=== PATIENT | male | born 1970 | race African-American/Black ===

== ENCOUNTER 2018-03-25 15:35 | Inpatient (IN) | payer OTHER ==
[2018-03-25 16:41] VITALS: BMI 30.7
--- NOTE | 2018-03-25 21:42 | HP ---
CIWA Score - CIWA Score Nausea/Vomitin Muscle Tremors: 4-Moderate,w/Arms Extend Anxiety: 3 Agitation: 4-Moderately Restless Paroxysmal Sweats: No Perspiration Orientation: 1-Uncertain about Date Tacttile Disturbances: 0-None Auditory Disturbances: 0-None Visual Disturbances: 0-None Headache: 3-Moderate CIWA-Ar Total Score: 18 Admission ROS BHS - HPI Chief Complaint: Alcohol withdrawal symptoms Allergies/Adverse Reactions: Allergies Allergy/AdvReac Type Severity Reaction Status Date / Time No Known Allergies Allergy Verified 03/25/18 21:12 History of Present Illness: 47 years old male with a long history of alcohol dependence is seeking admission to detox. patient has been in previous detox at [facility] and report insignificant period of sobriety. He has medical history of HTN, DM Type 2, Depression, anxiety and STD. He reports suicide attempt last month and denies suicidal ideation at this time. Exam Limitations: No Limitations - Ebola screening Have you traveled outside of the country in the last 21 days: No Have you had contact with anyone from an Ebola affected area: No Have you been sick,other than usual withdrawal symptoms: No Do you have a fever: No - Review of Systems Constitutional: Chills, Loss of Appetite, Malaise, Night Sweats, Changes in sleep, Unexplained wgt Loss EENT: reports: No Symptoms Reported Respiratory: reports: No Symptoms reported Cardiac: reports: No Symptoms Reported GI: reports: Difficulty Swallowing, Nausea, Poor Appetite, Poor Fluid Intake, Abdominal cramping : reports: No Symptoms Reported Neuro: reports: Headache, Tingling, Tremors Endocrine: reports: No Symptoms Reported Hematology: reports: No Symptoms Reported Psychiatric: reports: Orientated x3, Agitated, Anxious Other Systems: Reviewed and Negative Patient History - Patient Medical History Hx Anemia: No Hx Asthma: No Hx Chronic Obstructive Pulmonary Disease (COPD): No Hx Cancer: No Hx Cardiac Disorders: No Hx Hypertension: Yes (Not on medication) Hx Hypercholesterolemia: No Hx Pacemaker: No HX Cerebrovascular Accident: No Hx Seizures: No Hx Diabetes: Yes (Not on medication) Hx Gastrointestinal Disorders: No Hx Liver Disease: No Hx Genitourinary Disorders: No Hx Sexually Transmitted Disorders: Yes (STD (type unknown)) Hx Renal Disease (ESRD): No Hx Thyroid Disease: No Hx Human Immunodeficiency Virus (HIV): No (Negative 2017) Hx Hepatitis C: No Hx Depression: Yes (Not on medication) Hx Suicide Attempt: Yes (Suicide attempt January 2018. Denies suicidal ideation at this time) Hx Bipolar Disorder: No Hx Schizophrenia: Yes (Celexa, Depakote) - Patient Surgical History Past Surgical History: No - PPD History Previous Implant?: No Documented Results: Negative w/o proof Implanted On Prior [facility] Admission?: Yes PPD to be Administered?: Yes - Reproductive History Patient is a Female of Child Bearing Age (11 -55 yrs old): No (Male) - Smoking Cessation Smoking history: Never smoked Initiated information on smoking cessation: No - Substance & Tx. History Hx Alcohol Use: Yes Hx Substance Use: Yes Substance Use Type: Alcohol, Cocaine, Marijuana Hx Substance Use Treatment: No - Substances Abused Alcohol Route: Oral Frequency: Daily Amount used: 2 PINTS Age of first use: 12 Date of Last Use: 03/25/18 Marijuana/Hashish Route: Smoking Frequency: Daily Amount used: 4 BAGS Age of first use: 11 Date of Last Use: 03/25/18 Cocaine Route: SNIFF Frequency: Daily Amount used: 1 GRAM Age of first use: 13 Date of Last Use: 03/24/18 Family Disease History - Family Disease History Family History: Denies Admission Physical Exam S - Vital Signs Vital Signs: Vital Signs - 24 hr 03/25/18 16:38 Temperature 97.2 F L Pulse Rate 91 H Respiratory 20 Rate Blood Pressure 164/93 - Physical General Appearance: Yes: Moderate Distress, Tremorous, Irritable, Sweating, Anxious HEENTM: Yes: Normal ENT Inspection, Normocephalic, Normal Voice, RAMIRO Respiratory: Yes: Lungs Clear, Normal Breath Sounds, No Respiratory Distress Neck: Yes: Supple Breast: Yes: Breast Exam Deferred Cardiology: Yes: Tachycardia Abdominal: Yes: Normal Bowel Sounds Genitourinary: Yes: Within Normal Limits Back: Yes: Normal Inspection Musculoskeletal: Yes: Within Normal Limits Extremities: Yes: Tremors Neurological: Yes: Alert, Normal Mood/Affect Integumentary: Yes: Dry Lymphatic: Yes: Within Normal Limits - Diagnostic (1) Alcohol dependence with uncomplicated withdrawal Current Visit: Yes Status: Chronic (2) HTN (hypertension) Current Visit: Yes Status: Chronic (3) Anxiety Current Visit: Yes Status: Acute (4) Depression Current Visit: Yes Status: Chronic Qualifiers: Depression Type: unspecified Qualified Code(s): F32.9 - Major depressive disorder, single episode, unspecified (5) Diabetes type 2, no ocular involvement Current Visit: Yes Status: Chronic Cleared for Admission [facility] - Detox or Rehab [facility] Level of Care: Medically Managed Detox Regimen/Protocol: Librium [facility] Breath Alcohol Content Breath Alcohol Content: 0.059 Urine Drug Screen - Results Drug Screen Negative: No Urine Drug Screen Results: THC-Marijuana, BZO-Benzodiazepines
[2018-03-25] MEDS ORDERED: ACETAMINOPHEN 325 MG TABLET (FP) PO PRN (21:53)
[2018-03-25] MEDS ORDERED: MAGNESIUM HYDROX 2400MG/30ML ORAL SUSPENSION 30 ML CUP PO PRN (21:53)
[2018-03-25] MEDS ORDERED: MAGNESIUM CITRATE 300 ML BOTTLE PO PRN (21:53)
[2018-03-25] MEDS ORDERED: MAG HYDROX/AL HYDROX/SIMETH 30 ML UNIT-DOSE CUP PO PRN (21:53)
[2018-03-25] MEDS ORDERED: chlordiazePOXIDE HCL 25 MG CAPSULE PO PRN (21:53)
[2018-03-25] MEDS ORDERED: guaiFENesin/D-METHORPHAN HB 10 ML UNIT-DOSE CUPS PO PRN (21:53)
[2018-03-25] MEDS ORDERED: IBUPROFEN 400 MG TABLET (FP) PO PRN (21:53)
[2018-03-25] MEDS ORDERED: LOPERAMIDE HCL 2 MG CAPSULE PO PRN (21:53)
[2018-03-25] MEDS ORDERED: MENTHOL/PHENOL 1 EACH UD MM PRN (21:53)
[2018-03-25] MEDS ORDERED: P-EPHED 60MG/TRIPROLIDI 2.5MG TABLET PO PRN (21:53)
[2018-03-25] MEDS ORDERED: MELATONIN 5 MG TABLETS PO PRN (22:00)
[2018-03-25] MEDS: chlordiazePOXIDE HCL 25 MG CAPSULE PO SCH (23:14)
[2018-03-25] MEDS: THIAMINE HCL 100 MG TABLET (FP) PO SCH (23:14)
[2018-03-25] MEDS ORDERED: cloNIDine HCL 0.1 MG TABLET PO ONE (23:27)
[2018-03-26 01:11] LABS: URINE APPEARANCE CLEAR; URINE BILIRUBIN NEGATIVE (<2.0 mg/dL); URINE BLOOD NEGATIVE (NEGATIVE); URINE COLOR LTYELLOW; URINE GLUCOSE (UA) NEGATIVE (NEGATIVE); URINE KETONE NEGATIVE (NEGATIVE); URINE LEUK ESTERASE NEGATIVE (NEGATIVE); URINE NITRITE NEGATIVE (NEGATIVE); URINE UROBILINOGEN NEGATIVE mg/dL (0.2-1.0)
[2018-03-26 01:25] LABS: URINE PROTEIN 2+ (NEGATIVE)
[2018-03-26 01:36] LABS: URINE MUCUS RARE
[2018-03-26] MEDS: chlordiazePOXIDE HCL 25 MG CAPSULE PO SCH ×4 (05:58→22:26)
[2018-03-26 10:09] LABS: HEMATOCRIT 42.1 % (35.4-49); MCH 30.8 pg (25.7-33.7); MCHC 33.3 g/dl (32.0-35.9); MEAN CELL VOLUME 92.5 fl (80-96); PLATELET COUNT 139 K/MM3 (134-434); RBC 4.55 M/mm3 (4.00-5.60); RDW 13.5 % (11.9-15.9); WHITE BLOOD COUNT 3.5 K/mm3 (4.0-10.0)
[2018-03-26 10:23] LABS: BLOOD UREA NITROGEN 14 mg/dL (7-18)
[2018-03-26] MEDS: PRENATAL VITAMINS W/ FOLIC ACID TABLET (FP) PO SCH (10:53)
[2018-03-26 11:24] LABS: ALBUMIN 3.6 g/dl (3.4-5.0); ALK PHOS 99 U/L (45-117); ANION GAP 5 (8-16); BILIRUBIN,TOTAL 1.1 mg/dL (0.2-1.0); CALCIUM 8.6 mg/dL (8.5-10.1); CHLORIDE 104 mmol/L (98-107); CO2 31 mmol/L (21-32); CREATININE 1.4 mg/dL (0.7-1.3); GLUCOSE,RANDOM 109 mg/dL (74-106); SGOT/AST 39 U/L (15-37); SGPT/ALT 48 U/L (12-78); SODIUM 140 mmol/L (136-145); TOT PROT 7.3 g/dl (6.4-8.2)
--- NOTE | 2018-03-26 12:50 | CONSULT ---
[facility] Psychiatric Consult - Data Date of interview: 03/26/18 Admission source: [facility] Identifying data: Patient is a 47 year old male, father of one, unemployed, and currently lives with . This is patient's first admission to detox. Pt. admitted to for alcohol and cocaine dependence. Substance Abuse History: Smoking Cessation. Smoking history: Never smoked. Initiated information on smoking cessation: No. - Substance & Tx. History. Hx Alcohol Use: Yes. Hx Substance Use: Yes. Substance Use Type: Alcohol, Cocaine , Marijuana. Hx Substance Use Treatment: No. - Substances Abused. Alcohol. Route: Oral. Frequency: Daily. Amount used: 2 PINTS. Age of first use: 12. Date of Last Use: 03/25/18. Marijuana/Hashish. Route: Smoking. Frequency: Daily. Amount used: 4 BAGS. Age of first use: 11. Date of Last Use : 03/25/18. Cocaine. Route: SNIFF. Frequency: Daily. Amount used: 1 GRAM. Age of first use: 13. Date of Last Use: 03/24/18 Medical History: hypertension, diabetes, STD (unknown) Psychiatric History: Patient reports multiple psychiatric hospitalizations, most recently at [facility] in November of 2017 for suicidal ideation. Pt. is also known to [facility] in the [place]. OPD is provided at [facility]. Patient is prescribed Depakote 1500mg ER + Celexa 20mg + Ambien 10mg. Patient reports sub-optimal adherence to medications. Has not taken medications in approximately 5-7 days. Patient requesting to restart medications. Pt. denies h/o suicide attempt but has endorsed suicidal ideation of jumping from a bridge. Patient currently denies suicidal and homicidal ideation. Physical/Sexual Abuse/Trauma History: Denies. Mental Status Exam - Mental Status Exam Alert and Oriented to: Time, Place, Person Cognitive Function: Good Patient Appearance: Well Groomed Mood: Euthymic Affect: Mood Congruent Patient Behavior: Cooperative Speech Pattern: Appropriate Voice Loudness: Normal Thought Process: Intact, Goal Oriented Thought Disorder: Not Present Hallucinations: Denies Suicidal Ideation: Denies Homicidal Ideation: Denies Insight/Judgement: Poor Sleep: Poorly Appetite: Fair Muscle strength/Tone: Normal Gait/Station: Normal Psychiatric Findings - Problem List ([place] 1, 2,3) (1) Substance induced mood disorder Current Visit: Yes Status: Acute (2) Alcohol dependence with uncomplicated withdrawal Current Visit: Yes Status: Acute (3) MDD (major depressive disorder) Current Visit: Yes Status: Suspected (4) Cannabis dependence Current Visit: Yes Status: Chronic - Initial Treatment Plan Initial Treatment Plan: Psychoeducation provided. Detoxification in progress. Celexa 20mg PO daily + Depakote 500mg qhs + Ambien 10mg qhs. Depakote level ordered for the morning on 03/27/18. Benefits and side effects discussed. Pt. made aware of the risk of parasomnia when accepting ambien. Verbal consent given. Will continue to monitor patient.
--- NOTE | 2018-03-26 14:59 | PN ---
S CIWA - CIWA Score Nausea/Vomitin-No Nausea/No Vomiting Muscle Tremors: 3 Anxiety: 4-Mod. Anxious/Guarded Agitation: 2 Paroxysmal Sweats: 3 Orientation: 0-Oriented Tacttile Disturbances: 1-Very Mild Itch/Numbness Auditory Disturbances: 1-Very Mild Visual Disturbances: 3-Moderate Sensitivity Headache: 0-None Present CIWA-Ar Total Score: 17 BHS Progress Note (SOAP) Subjective: Sweating, Tremors, Fatigue, Anxious. Objective: PATIENT A & O X 3, OBSERVED AMBULATING ON UNIT. NO ACUTE DISTRESS. 03/26/18 14:57 Vital Signs Temperature 98.1 F 03/26/18 09:27 Pulse Rate 74 03/26/18 09:27 Respiratory Rate 18 03/26/18 09:27 Blood Pressure 155/91 03/26/18 09:27 O2 Sat by Pulse Oximetry (%) Laboratory Tests 03/25/18 03/26/18 03/26/18 23:36 05:58 07:00 WBC 3.5 L RBC 4.55 Hgb 14.0 Hct 42.1 MCV 92.5 MCH 30.8 MCHC 33.3 RDW 13.5 Plt Count 139 MPV 11.0 Sodium Potassium Chloride Carbon Dioxide Anion Gap BUN Creatinine Creat Clearance w eGFR POC Glucometer 87 Random Glucose Calcium Total Bilirubin AST ALT Alkaline Phosphatase Total Protein Albumin Urine Color Ltyellow Urine Appearance Clear Urine pH 6.0 Ur Specific [place] 1.014 Urine Protein 2+ H Urine Glucose (UA) Negative Urine Ketones Negative Urine Blood Negative Urine Nitrite Negative Urine Bilirubin Negative Urine Urobilinogen Negative Ur Leukocyte Esterase Negative Urine WBC (Auto) 1 Urine RBC (Auto) 4 Urine Mucus Rare 03/26/18 07:00 WBC RBC Hgb Hct MCV MCH MCHC RDW Plt Count MPV Sodium 140 Potassium 4.0 Chloride 104 Carbon Dioxide 31 Anion Gap 5 L BUN 14 Creatinine 1.4 H Creat Clearance w eGFR 53.86 POC Glucometer Random Glucose 109 H Calcium 8.6 Total Bilirubin 1.1 H AST 39 H ALT 48 Alkaline Phosphatase 99 Total Protein 7.3 Albumin 3.6 Urine Color Urine Appearance Urine pH Ur Specific [place] Urine Protein Urine Glucose (UA) Urine Ketones Urine Blood Urine Nitrite Urine Bilirubin Urine Urobilinogen Ur Leukocyte Esterase Urine WBC (Auto) Urine RBC (Auto) Urine Mucus LABS NOTED. RPR RESULT PENDING. 03/26/18 15:03 Assessment: 03/26/18 14:58 WITHDRAWAL SYMPTOMS. HYPERTENSION. 03/26/18 15:03 Plan: CONTINUE DETOX. AMLODIPINE, 5 MG PO DAILY (PATIENT PREVIOUSLY PRESCRIBED IN PAST BY OUTSIDE MEDICAL PROVIDER).
[2018-03-26] MEDS ORDERED: amLODIPine BESYLATE 5 MG TABLET (FP) PO ONE (15:00)
[2018-03-26] MEDS ORDERED: DIVALPROEX NA *ER* EXTEND REL 500 MG TABLET.SA (FP) PO SCH (22:00)
[2018-03-26] MEDS: THIAMINE HCL 100 MG TABLET (FP) PO SCH (22:26)
[2018-03-26] MEDS: ZOLPIDEM TARTRATE 10 MG TABLET (PARK CARE ONLY) PO PRN (22:27)
[2018-03-27] MEDS: chlordiazePOXIDE HCL 25 MG CAPSULE PO SCH ×3 (06:41→17:15)
--- NOTE | 2018-03-27 09:48 | PN ---
S Progress Note Note: Psychiatric nurse practitioner note: Patient able to tolerate Depakote 500mg ER last night. Chart and pharmacy claims reviewed. Will order depakote 500mg ER BID. Pt. agreeable with plan. Will continue to monitor.
[2018-03-27] MEDS ORDERED: amLODIPine BESYLATE 5 MG TABLET (FP) PO SCH (10:00)
[2018-03-27] MEDS: CITALOPRAM HYDROBROMIDE 20 MG TABLET (FP) PO SCH (10:25)
[2018-03-27] MEDS: PRENATAL VITAMINS W/ FOLIC ACID TABLET (FP) PO SCH (10:25)
[2018-03-27] MEDS: DIVALPROEX NA *ER* EXTEND REL 500 MG TABLET.SA (FP) PO SCH ×2 (11:26→22:28)
--- NOTE | 2018-03-27 13:49 | PN ---
[facility] CIWA - CIWA Score Nausea/Vomitin-No Nausea/No Vomiting Muscle Tremors: 3 Anxiety: 4-Mod. Anxious/Guarded Agitation: 4-Moderately Restless Paroxysmal Sweats: 3 Orientation: 0-Oriented Tacttile Disturbances: 1-Very Mild Itch/Numbness Auditory Disturbances: 1-Very Mild Visual Disturbances: 0-None Headache: 0-None Present CIWA-Ar Total Score: 16 S Progress Note (SOAP) Subjective: Seating, Tremors, Anxious. Objective: PATIENT A & O X 3, OBSERVED AMBULATING ON UNIT. NO ACUTE DISTRESS. PATIENT DENIES CHEST PAIN. 03/27/18 13:46 Vital Signs Temperature 98.5 F 03/27/18 09:13 Pulse Rate 84 03/27/18 09:13 Respiratory Rate 18 03/27/18 09:13 Blood Pressure 150/99 03/27/18 09:13 O2 Sat by Pulse Oximetry (%) Laboratory Tests 03/25/18 03/26/18 03/26/18 23:36 05:58 07:00 WBC 3.5 L RBC 4.55 Hgb 14.0 Hct 42.1 MCV 92.5 MCH 30.8 MCHC 33.3 RDW 13.5 Plt Count 139 MPV 11.0 Sodium Potassium Chloride Carbon Dioxide Anion Gap BUN Creatinine Creat Clearance w eGFR POC Glucometer 87 Random Glucose Calcium Total Bilirubin AST ALT Alkaline Phosphatase Total Protein Albumin Urine Color Ltyellow Urine Appearance Clear Urine pH 6.0 Ur Specific [place] 1.014 Urine Protein 2+ H Urine Glucose (UA) Negative Urine Ketones Negative Urine Blood Negative Urine Nitrite Negative Urine Bilirubin Negative Urine Urobilinogen Negative Ur Leukocyte Esterase Negative Urine WBC (Auto) 1 Urine RBC (Auto) 4 Urine Mucus Rare Valproic Acid RPR Titer 03/26/18 03/26/18 03/26/18 07:00 07:00 16:21 WBC RBC Hgb Hct MCV MCH MCHC RDW Plt Count MPV Sodium 140 Potassium 4.0 Chloride 104 Carbon Dioxide 31 Anion Gap 5 L BUN 14 Creatinine 1.4 H Creat Clearance w eGFR 53.86 POC Glucometer 83 Random Glucose 109 H Calcium 8.6 Total Bilirubin 1.1 H AST 39 H ALT 48 Alkaline Phosphatase 99 Total Protein 7.3 Albumin 3.6 Urine Color Urine Appearance Urine pH Ur Specific [place] Urine Protein Urine Glucose (UA) Urine Ketones Urine Blood Urine Nitrite Urine Bilirubin Urine Urobilinogen Ur Leukocyte Esterase Urine WBC (Auto) Urine RBC (Auto) Urine Mucus Valproic Acid RPR Titer Nonreactive 03/27/18 06:00 WBC RBC Hgb Hct MCV MCH MCHC RDW Plt Count MPV Sodium Potassium Chloride Carbon Dioxide Anion Gap BUN Creatinine Creat Clearance w eGFR POC Glucometer Random Glucose Calcium Total Bilirubin AST ALT Alkaline Phosphatase Total Protein Albumin Urine Color Urine Appearance Urine pH Ur Specific [place] Urine Protein Urine Glucose (UA) Urine Ketones Urine Blood Urine Nitrite Urine Bilirubin Urine Urobilinogen Ur Leukocyte Esterase Urine WBC (Auto) Urine RBC (Auto) Urine Mucus Valproic Acid 21.982 L RPR Titer LABS NOTED. Assessment: 03/27/18 13:47 WITHDRAWAL SYMPTOMS. HYPERTENSION. Plan: CONTINUE DETOX.
--- NOTE | 2018-03-27 16:29 | PN ---
S Progress Note Note: AMLODIPINE DOSE INCREASED TO 10 MG PO DAILY FOR PERSISTENTLY ELEVATED BP. Kelli HAETH BRAKE ADJUSTER
[2018-03-27] MEDS ORDERED: amLODIPine BESYLATE 5 MG TABLET (FP) PO ONE (16:30)
[2018-03-27] MEDS: THIAMINE HCL 100 MG TABLET (FP) PO SCH (22:28)
[2018-03-27] MEDS: chlordiazePOXIDE 5 MG CAPSULE PO SCH (22:28)
[2018-03-27] MEDS: ZOLPIDEM TARTRATE 10 MG TABLET (PARK CARE ONLY) PO PRN (22:29)
[2018-03-28] MEDS: chlordiazePOXIDE 5 MG CAPSULE PO SCH ×3 (06:46→17:22)
[2018-03-28] MEDS: CITALOPRAM HYDROBROMIDE 20 MG TABLET (FP) PO SCH (10:25)
[2018-03-28] MEDS: PRENATAL VITAMINS W/ FOLIC ACID TABLET (FP) PO SCH (10:25)
[2018-03-28] MEDS: DIVALPROEX NA *ER* EXTEND REL 500 MG TABLET.SA (FP) PO SCH ×2 (10:25→22:28)
[2018-03-28] MEDS: amLODIPine BESYLATE 10 MG TABLET (FP) PO SCH (10:25)
--- NOTE | 2018-03-28 15:25 | PN ---
BHS Progress Note (SOAP) Subjective: Tremors, Poor Appetite, Sweating, Body Aches. Objective: PATIENT A & O X 3, OBSERVED AMBULATING ON UNIT. NO ACUTE DISTRESS. 03/28/18 15:23 Vital Signs Temperature 98 F 03/28/18 14:03 Pulse Rate 102 H 03/28/18 14:03 Respiratory Rate 20 03/28/18 14:03 Blood Pressure 149/93 03/28/18 14:03 O2 Sat by Pulse Oximetry (%) Laboratory Tests 03/25/18 03/26/18 03/26/18 23:36 05:58 07:00 WBC 3.5 L RBC 4.55 Hgb 14.0 Hct 42.1 MCV 92.5 MCH 30.8 MCHC 33.3 RDW 13.5 Plt Count 139 MPV 11.0 Sodium Potassium Chloride Carbon Dioxide Anion Gap BUN Creatinine Creat Clearance w eGFR POC Glucometer 87 Random Glucose Calcium Total Bilirubin AST ALT Alkaline Phosphatase Total Protein Albumin Urine Color Ltyellow Urine Appearance Clear Urine pH 6.0 Ur Specific [place] 1.014 Urine Protein 2+ H Urine Glucose (UA) Negative Urine Ketones Negative Urine Blood Negative Urine Nitrite Negative Urine Bilirubin Negative Urine Urobilinogen Negative Ur Leukocyte Esterase Negative Urine WBC (Auto) 1 Urine RBC (Auto) 4 Urine Mucus Rare Valproic Acid RPR Titer 03/26/18 03/26/18 03/26/18 07:00 07:00 16:21 WBC RBC Hgb Hct MCV MCH MCHC RDW Plt Count MPV Sodium 140 Potassium 4.0 Chloride 104 Carbon Dioxide 31 Anion Gap 5 L BUN 14 Creatinine 1.4 H Creat Clearance w eGFR 53.86 POC Glucometer 83 Random Glucose 109 H Calcium 8.6 Total Bilirubin 1.1 H AST 39 H ALT 48 Alkaline Phosphatase 99 Total Protein 7.3 Albumin 3.6 Urine Color Urine Appearance Urine pH Ur Specific [place] Urine Protein Urine Glucose (UA) Urine Ketones Urine Blood Urine Nitrite Urine Bilirubin Urine Urobilinogen Ur Leukocyte Esterase Urine WBC (Auto) Urine RBC (Auto) Urine Mucus Valproic Acid RPR Titer Nonreactive 03/27/18 03/27/18 03/28/18 06:00 16:22 06:44 WBC RBC Hgb Hct MCV MCH MCHC RDW Plt Count MPV Sodium Potassium Chloride Carbon Dioxide Anion Gap BUN Creatinine Creat Clearance w eGFR POC Glucometer 115 149 Random Glucose Calcium Total Bilirubin AST ALT Alkaline Phosphatase Total Protein Albumin Urine Color Urine Appearance Urine pH Ur Specific [place] Urine Protein Urine Glucose (UA) Urine Ketones Urine Blood Urine Nitrite Urine Bilirubin Urine Urobilinogen Ur Leukocyte Esterase Urine WBC (Auto) Urine RBC (Auto) Urine Mucus Valproic Acid 21.982 L RPR Titer LABS NOTED. Assessment: 03/28/18 15:23 WITHDRAWAL SYMPTOMS. Plan: CONTINUE DETOX. PATIENT SCHEDULED FOR D/C TOMORROW.
[2018-03-28] MEDS: THIAMINE HCL 100 MG TABLET (FP) PO SCH (22:28)
[2018-03-28] MEDS: ZOLPIDEM TARTRATE 10 MG TABLET (PARK CARE ONLY) PO PRN (22:29)
[2018-03-28] MEDS: chlordiazePOXIDE HCL 10 MG CAPSULE PO SCH (22:29)
[2018-03-29] MEDS: chlordiazePOXIDE HCL 10 MG CAPSULE PO SCH ×2 (05:40→10:17)
[2018-03-29 09:41] VITALS: BP 124/79; PULSE 80; TEMP 98.2
[2018-03-29] MEDS: DIVALPROEX NA *ER* EXTEND REL 500 MG TABLET.SA (FP) PO SCH (10:17)
[2018-03-29] MEDS: PRENATAL VITAMINS W/ FOLIC ACID TABLET (FP) PO SCH (10:17)
[2018-03-29] MEDS: CITALOPRAM HYDROBROMIDE 20 MG TABLET (FP) PO SCH (10:17)
[2018-03-29] MEDS: amLODIPine BESYLATE 10 MG TABLET (FP) PO SCH (10:17)
--- NOTE | 2018-03-29 12:50 | PN ---
S Progress Note (SOAP) Subjective: Patient denies current Detox symptoms and reports that he feels well overall. Objective: PATIENT A & O X 3, OBSERVED AMBULATING ON UNIT. NO ACUTE DISTRESS. 03/29/18 12:49 Vital Signs Temperature 98.2 F 03/29/18 09:40 Pulse Rate 80 03/29/18 09:40 Respiratory Rate 18 03/29/18 09:40 Blood Pressure 124/79 03/29/18 09:40 O2 Sat by Pulse Oximetry (%) Laboratory Tests 03/25/18 03/26/18 03/26/18 23:36 05:58 07:00 WBC 3.5 L RBC 4.55 Hgb 14.0 Hct 42.1 MCV 92.5 MCH 30.8 MCHC 33.3 RDW 13.5 Plt Count 139 MPV 11.0 Sodium Potassium Chloride Carbon Dioxide Anion Gap BUN Creatinine Creat Clearance w eGFR POC Glucometer 87 Random Glucose Calcium Total Bilirubin AST ALT Alkaline Phosphatase Total Protein Albumin Urine Color Ltyellow Urine Appearance Clear Urine pH 6.0 Ur Specific [place] 1.014 Urine Protein 2+ H Urine Glucose (UA) Negative Urine Ketones Negative Urine Blood Negative Urine Nitrite Negative Urine Bilirubin Negative Urine Urobilinogen Negative Ur Leukocyte Esterase Negative Urine WBC (Auto) 1 Urine RBC (Auto) 4 Urine Mucus Rare Valproic Acid RPR Titer 03/26/18 03/26/18 03/26/18 07:00 07:00 16:21 WBC RBC Hgb Hct MCV MCH MCHC RDW Plt Count MPV Sodium 140 Potassium 4.0 Chloride 104 Carbon Dioxide 31 Anion Gap 5 L BUN 14 Creatinine 1.4 H Creat Clearance w eGFR 53.86 POC Glucometer 83 Random Glucose 109 H Calcium 8.6 Total Bilirubin 1.1 H AST 39 H ALT 48 Alkaline Phosphatase 99 Total Protein 7.3 Albumin 3.6 Urine Color Urine Appearance Urine pH Ur Specific [place] Urine Protein Urine Glucose (UA) Urine Ketones Urine Blood Urine Nitrite Urine Bilirubin Urine Urobilinogen Ur Leukocyte Esterase Urine WBC (Auto) Urine RBC (Auto) Urine Mucus Valproic Acid RPR Titer Nonreactive 03/27/18 03/27/18 03/28/18 06:00 16:22 06:44 WBC RBC Hgb Hct MCV MCH MCHC RDW Plt Count MPV Sodium Potassium Chloride Carbon Dioxide Anion Gap BUN Creatinine Creat Clearance w eGFR POC Glucometer 115 149 Random Glucose Calcium Total Bilirubin AST ALT Alkaline Phosphatase Total Protein Albumin Urine Color Urine Appearance Urine pH Ur Specific [place] Urine Protein Urine Glucose (UA) Urine Ketones Urine Blood Urine Nitrite Urine Bilirubin Urine Urobilinogen Ur Leukocyte Esterase Urine WBC (Auto) Urine RBC (Auto) Urine Mucus Valproic Acid 21.982 L RPR Titer 03/28/18 03/29/18 16:19 05:40 WBC RBC Hgb Hct MCV MCH MCHC RDW Plt Count MPV Sodium Potassium Chloride Carbon Dioxide Anion Gap BUN Creatinine Creat Clearance w eGFR POC Glucometer 156 152 Random Glucose Calcium Total Bilirubin AST ALT Alkaline Phosphatase Total Protein Albumin Urine Color Urine Appearance Urine pH Ur Specific [place] Urine Protein Urine Glucose (UA) Urine Ketones Urine Blood Urine Nitrite Urine Bilirubin Urine Urobilinogen Ur Leukocyte Esterase Urine WBC (Auto) Urine RBC (Auto) Urine Mucus Valproic Acid RPR Titer LABS NOTED. Assessment: 03/29/18 12:49 COMPLETION OF DETOX REGIMEN. Plan: PATIENT SCHEDULED FOR DISCHARGE FROM DETOX UNIT TODAY. PATIENT GOING ON TO [facility] FOR AFTERCARE.
--- NOTE | 2018-03-29 12:54 | DS ---
[facility] Detox Discharge Summary Admission Date: 03/25/18 Discharge Date: 03/29/18 - History Present History: Alcohol Dependence, Cannabis Dependence Additional Comments: PATIENT GOING [facility] ([place] FOR AFTERCARE. PATIENT WAS DISCHARGED FROM DETOX UNIT TO BE TAKEN OVER TO REHAB UNIT IN STABLE MEDICAL CONDITION. Pertinent Past History: HTN, Type II DM, History of Schizophrenia, Depression, Anxiety. - Physical Exam Results Vital Signs: Vital Signs Temperature 98.2 F 03/29/18 09:40 Pulse Rate 80 03/29/18 09:40 Respiratory Rate 18 03/29/18 09:40 Blood Pressure 124/79 03/29/18 09:40 O2 Sat by Pulse Oximetry (%) Pertinent Admission Physical Exam Findings: WITHDRAWAL SYMPTOMS. Laboratory Tests 03/25/18 03/26/18 03/26/18 23:36 05:58 07:00 WBC 3.5 L RBC 4.55 Hgb 14.0 Hct 42.1 MCV 92.5 MCH 30.8 MCHC 33.3 RDW 13.5 Plt Count 139 MPV 11.0 Sodium Potassium Chloride Carbon Dioxide Anion Gap BUN Creatinine Creat Clearance w eGFR POC Glucometer 87 Random Glucose Calcium Total Bilirubin AST ALT Alkaline Phosphatase Total Protein Albumin Urine Color Ltyellow Urine Appearance Clear Urine pH 6.0 Ur Specific [place] 1.014 Urine Protein 2+ H Urine Glucose (UA) Negative Urine Ketones Negative Urine Blood Negative Urine Nitrite Negative Urine Bilirubin Negative Urine Urobilinogen Negative Ur Leukocyte Esterase Negative Urine WBC (Auto) 1 Urine RBC (Auto) 4 Urine Mucus Rare Valproic Acid RPR Titer 03/26/18 03/26/18 03/26/18 07:00 07:00 16:21 WBC RBC Hgb Hct MCV MCH MCHC RDW Plt Count MPV Sodium 140 Potassium 4.0 Chloride 104 Carbon Dioxide 31 Anion Gap 5 L BUN 14 Creatinine 1.4 H Creat Clearance w eGFR 53.86 POC Glucometer 83 Random Glucose 109 H Calcium 8.6 Total Bilirubin 1.1 H AST 39 H ALT 48 Alkaline Phosphatase 99 Total Protein 7.3 Albumin 3.6 Urine Color Urine Appearance Urine pH Ur Specific [place] Urine Protein Urine Glucose (UA) Urine Ketones Urine Blood Urine Nitrite Urine Bilirubin Urine Urobilinogen Ur Leukocyte Esterase Urine WBC (Auto) Urine RBC (Auto) Urine Mucus Valproic Acid RPR Titer Nonreactive 03/27/18 03/27/18 03/28/18 06:00 16:22 06:44 WBC RBC Hgb Hct MCV MCH MCHC RDW Plt Count MPV Sodium Potassium Chloride Carbon Dioxide Anion Gap BUN Creatinine Creat Clearance w eGFR POC Glucometer 115 149 Random Glucose Calcium Total Bilirubin AST ALT Alkaline Phosphatase Total Protein Albumin Urine Color Urine Appearance Urine pH Ur Specific [place] Urine Protein Urine Glucose (UA) Urine Ketones Urine Blood Urine Nitrite Urine Bilirubin Urine Urobilinogen Ur Leukocyte Esterase Urine WBC (Auto) Urine RBC (Auto) Urine Mucus Valproic Acid 21.982 L RPR Titer 03/28/18 03/29/18 16:19 05:40 WBC RBC Hgb Hct MCV MCH MCHC RDW Plt Count MPV Sodium Potassium Chloride Carbon Dioxide Anion Gap BUN Creatinine Creat Clearance w eGFR POC Glucometer 156 152 Random Glucose Calcium Total Bilirubin AST ALT Alkaline Phosphatase Total Protein Albumin Urine Color Urine Appearance Urine pH Ur Specific [place] Urine Protein Urine Glucose (UA) Urine Ketones Urine Blood Urine Nitrite Urine Bilirubin Urine Urobilinogen Ur Leukocyte Esterase Urine WBC (Auto) Urine RBC (Auto) Urine Mucus Valproic Acid RPR Titer LABS NOTED. - Treatment Hospital Course: Detox Protocol Followed, Detoxed Safely, Responded well, Discharged Condition Good, Rehab Referral Accepted Patient has Accepted a Rehab Referral to: [facility] ([place], [place] . - Medication Discharge Medications: Ambulatory Orders Citalopram Hydrobromide [Celexa -] 20 mg PO DAILY 03/25/18 Divalproex [Depakote -] 500 mg PO DAILY 03/25/18 Divalproex Sodium [Depakote ER] 500 mg PO HS 03/26/18 - Diagnosis (1) Anxiety Status: Acute (2) Alcohol dependence with uncomplicated withdrawal Status: Acute (3) Diabetes type 2, no ocular involvement Status: Chronic (4) HTN (hypertension) Status: Chronic Qualifiers: Hypertension type: unspecified Qualified Code(s): I10 - Essential (primary ) hypertension (5) Substance induced mood disorder Status: Acute (6) MDD (major depressive disorder) Status: Suspected Qualifiers: Major depression recurrence: recurrent Active/Remission status: remission status unspecified Qualified Code(s): F33.9 - Major depressive disorder, recurrent, unspecified (7) Cannabis dependence Status: Chronic - AMA Did Patient Leave Against Medical Advice: No
== END 2018-03-29 12:09 | disposition other institution (70) | DRG 775 ==
LOC: YASAS 15:35 → Y3N 22:04
PROVIDERS: ADMIT Internal Medicine; ATTEND Internal Medicine
PROC: HZ2ZZZZ Detoxification Services for Substance Abuse Treatment (ICD-10-PCS; principal; 2018-03-25)
DX: F10.230 Alcohol dependence with withdrawal, uncomplicated (principal); F12.20 Cannabis dependence, uncomplicated; F41.9 Anxiety disorder, unspecified; F19.24 Other psychoactive substance dependence with psychoactive substance-induced mood disorder; F33.9 Major depressive disorder, recurrent, unspecified; I10 Essential (primary) hypertension; E11.9 Type 2 diabetes mellitus without complications; R00.0 Tachycardia, unspecified; Z87.438 Personal history of other diseases of male genital organs; Z91.5 Personal history of self-harm
CPT/HCPCS: 36415; 80053; 80164; 81003; 81015; 82962; 85027; 86593; 93005; 93010; J0735

== ENCOUNTER 2018-03-29 13:09 | Inpatient (IN) | payer OTHER ==
--- NOTE | 2018-03-29 13:01 | HP ---
[facility] Rehab Assess/Revision - Admission History Admitted to Rehab from: [facility] Date of Admission to Rehab: 03/29/2018 - Vital signs Vital Signs: NOTED; STABLE. - Findings Detox History & Physical reviewed: Yes Concur with findings: Yes Comments/Additional Findings: PATIENT'S MEDICAL / MEDICATION HISTORY REVIEWED PRIOR TO DISCHARGE FROM DETOX UNIT. PATIENT WAS DISCHARGED FROM DETOX UNIT TO BE TAKEN TO REHAB UNIT IN STABLE MEDICAL CONDITION. Inpatient Rehab Admission - Initial Determination Are CD services needed?: Yes Free of communicable disease: Yes Not in need of hospitalization: Yes - Rehab Admission Criteria Previous failed treatment: Yes Comorbidities: Yes Patient is meeting Inpatient Rehab admission criteria:: Yes
[~2018-03-29 13:09] MED LIST: ACETAMINOPHEN 325 MG TABLET (FP) PO PRN; IBUPROFEN 400 MG TABLET (FP) PO PRN; LOPERAMIDE HCL 2 MG CAPSULE PO PRN; MAG HYDROX/AL HYDROX/SIMETH 30 ML UNIT-DOSE CUP PO PRN; MAGNESIUM CITRATE 300 ML BOTTLE PO PRN; MAGNESIUM HYDROX 2400MG/30ML ORAL SUSPENSION 30 ML CUP PO PRN; MENTHOL/PHENOL 1 EACH UD MM PRN; P-EPHED 60MG/TRIPROLIDI 2.5MG TABLET PO PRN; guaiFENesin/D-METHORPHAN HB 10 ML UNIT-DOSE CUPS PO PRN
[2018-03-29] MEDS ORDERED: hydrOXYzine PAMOATE 50 MG CAPSULE (FP) PO PRN (20:09)
[2018-03-29] MEDS: THIAMINE HCL 100 MG TABLET (FP) PO SCH (21:15)
[2018-03-29] MEDS: MELATONIN 5 MG TABLETS PO PRN (21:17)
[2018-03-29] MEDS ORDERED: DIVALPROEX SODIUM 500 MG TABLET E.C. PO SCH (22:00)
--- NOTE | 2018-03-30 09:11 | HP ---
<Stella Godinez - Last Filed: 03/30/18 16:53> Psychiatrist Admission - Data Vital Signs: Vital Signs - 24 hr 03/30/18 03/30/18 03/30/18 00:30 03:30 06:45 Temperature 97.8 F Pulse Rate 75 Respiratory 18 18 20 Rate Blood Pressure 143/86 03/30/18 10:00 Temperature Pulse Rate 81 Respiratory 18 Rate Blood Pressure 132/76 Allergies/Adverse Reactions: Allergies Allergy/AdvReac Type Severity Reaction Status Date / Time No Known Allergies Allergy Verified 03/25/18 21:12 <Ayaz Xiao - Last Filed: 04/01/18 09:12> Psychiatrist Admission - Data Date of interview: 03/30/18 Admission source: 3N Identifying data: This is the first [facility] Rehabilitation admission for this 47 years old Black male, father of 4 children, unemployed on food stamp, domiciled living with his Medical History: Significant for hypertension, type 2 diabetes, STD (type unknown). Patient denies ever had STD's as reported on [facility] physical dated Psychiatric History: Patient could not or would not give history, however he gave senior copywriter his contact([phone]) who, with patient vrbal consent, provided history. According to his , patient had his first psychiatric contact in early November 2017 when he was admitted to [facility] for suicidal & homicidal ideation towards . As per , he was contemplating of burning her with cooking oil. He was discharged after 5 days stay. He was readmitted to [facility] in [place] the day after his discharge from [facility] since he was not quite well as put it. He was kept there for 7 days, diagnosed with Bipolar, Schizophrenia, PTSD and AHDD. He was discharged on Depakote 500 mg daily & 1000 mg HS and Celexa 20 mg po daily and referred to [facility] where he saw Dr Lawson. Patient claims he stopped taking medications a week prior to his detox admission to this facility because he relapsed on alcohol. He was seen by HANNA Pelayo on 03/26/18 and was prescribed Celexa 20 mg po daily, Depakote 500 mg po HS and Ambien 10 mg po HS. Physical/Sexual Abuse/Trauma History: Denies history of emotional, physical or sexual abuse as well as DV relationship. No service Additional Comment: Reports history of multiple previous arrests including 4 felony convictions. Denies being on parole/probation at present Vital Signs: Vital Signs - 24 hr 03/29/18 03/30/18 03/30/18 14:34 00:30 03:30 Temperature 98.2 F Pulse Rate 80 Respiratory 16 18 18 Rate Blood Pressure 148/70 03/30/18 06:45 Temperature 97.8 F Pulse Rate 75 Respiratory 20 Rate Blood Pressure 143/86 Date of last physical exam: 03/29/18 Concur with the findings of this exam: Yes - Substance Abuse/Tx History Hx Alcohol Use: Yes Hx Substance Use: Yes Substance Use Type: Alcohol (Started drinking alcohol at age 12, consumes 2 pints of liquor daily. Last drank on 03/25/18), Cocaine (Started using cocaine at age 13, consumes one gram daily. Last used on 03/24/18), Marijuana (Started smoking marjuana at age 11, consumes 4 bags daily. Last smoked on 03/25/18) Hx Substance Use Treatment: Yes (2 previous inpt detox & 3 inpt rehab admissions ) Mental Status Exam - Mental Status Exam Alert and Oriented to: Time, Place, Person Cognitive Function: Fair Patient Appearance: Well Groomed Mood: Hopeful, Euthymic Affect: Appropriate Patient Behavior: Cooperative (but evasive) Speech Pattern: Clear Voice Loudness: Normal Thought Process: Intact, Goal Oriented Thought Disorder: Not Present Hallucinations: Denies Suicidal Ideation: Denies Homicidal Ideation: Denies Insight/Judgement: Fair Sleep: Poorly Appetite: Good Muscle strength/Tone: Normal Gait/Station: Normal Psychiatric Findings - Problem List (Banks 1, 2,3) (1) Alcohol dependence Current Visit: Yes Status: Acute (2) Cocaine dependence Current Visit: Yes Status: Acute (3) Cannabis dependence Current Visit: No Status: Acute (4) Bipolar disorder Current Visit: Yes Status: Chronic (5) Schizoaffective disorder Current Visit: Yes Status: Ruled-out (6) Diabetes type 2, no ocular involvement Current Visit: No Status: Chronic (7) HTN (hypertension) Current Visit: No Status: Chronic Qualifiers: Hypertension type: unspecified Qualified Code(s): I10 - Essential (primary ) hypertension - Initial Treatment Plan Initial Treatment Plan: 1) Continue Celexa 20 mg po daily. 2) Start Depakote 500 mg daily & 100 mg HS and Belsomra 10 mg po HS prn for insomnia. 3) monitor progress
[2018-03-30] MEDS: PRENATAL VITAMINS W/ FOLIC ACID TABLET (FP) PO SCH (09:53)
[2018-03-30] MEDS: amLODIPine BESYLATE 10 MG TABLET (FP) PO SCH (09:53)
[2018-03-30] MEDS ORDERED: CITALOPRAM HYDROBROMIDE 10 MG TABLET (FP) PO SCH (10:00)
[2018-03-30] MEDS ORDERED: DIVALPROEX SODIUM 500 MG TABLET E.C. PO SCH (10:00)
[2018-03-30] MEDS ORDERED: CITALOPRAM HYDROBROMIDE 20 MG TABLET (FP) PO ONE (11:22)
[2018-03-30] MEDS ORDERED: CITALOPRAM HYDROBROMIDE 10 MG TABLET (FP) PO ONE (11:30)
[2018-03-30] MEDS: DIVALPROEX SODIUM 500 MG TABLET E.C. PO SCH ×2 (12:06→21:35)
[2018-03-30] MEDS: THIAMINE HCL 100 MG TABLET (FP) PO SCH (21:36)
[2018-03-30] MEDS ORDERED: SUVOREXANT 10 MG TABLET PO PRN (22:00)
[2018-03-30] MEDS ORDERED: DIVALPROEX NA *ER* EXTEND REL 500 MG TABLET.SA (FP) PO SCH (22:00)
[2018-03-31] MEDS: amLODIPine BESYLATE 10 MG TABLET (FP) PO SCH (10:08)
[2018-03-31] MEDS: CITALOPRAM HYDROBROMIDE 20 MG TABLET (FP) PO SCH (10:08)
[2018-03-31] MEDS: DIVALPROEX SODIUM 500 MG TABLET E.C. PO SCH ×2 (10:08→21:20)
[2018-03-31] MEDS: PRENATAL VITAMINS W/ FOLIC ACID TABLET (FP) PO SCH (10:08)
[2018-03-31] MEDS: THIAMINE HCL 100 MG TABLET (FP) PO SCH (21:20)
[2018-03-31] MEDS: MELATONIN 5 MG TABLETS PO PRN (21:21)
[2018-04-01] MEDS: amLODIPine BESYLATE 10 MG TABLET (FP) PO SCH (10:01)
[2018-04-01] MEDS: PRENATAL VITAMINS W/ FOLIC ACID TABLET (FP) PO SCH (10:01)
[2018-04-01] MEDS: CITALOPRAM HYDROBROMIDE 20 MG TABLET (FP) PO SCH (10:01)
[2018-04-01] MEDS: DIVALPROEX SODIUM 500 MG TABLET E.C. PO SCH ×2 (10:01→21:06)
--- NOTE | 2018-04-01 13:42 | PN ---
[facility] Progress Note Note: Patient presents to review blood sugars. Laboratory Tests 03/29/18 03/30/18 03/30/18 17:06 06:20 16:39 POC Glucometer 117 127 171 03/31/1818 04/01/18 06:18 16:18 06:26 POC Glucometer 142 198 195 Vital Signs Temperature 98.0 F 04/01/18 06:37 Pulse Rate 84 04/01/18 09:30 Respiratory Rate 19 04/01/18 06:37 Blood Pressure 129/73 04/01/18 09:30 O2 Sat by Pulse Oximetry (%) Subj: denies CP, SOB and Dizziness. Obj: Alert and oriented x 3. In no acute distress. Skin warm and dry. Ext without edema. Neuro exam CN 1-X11 grossly intact. A/P: DM Will start Glipizide 10mg daily as pt reports taking this medication while incarcerated. Metformin was stopped due to renal side effects. Continue BGM Diet modifications reviewed continue to monitor clinically.
[2018-04-01] MEDS: THIAMINE HCL 100 MG TABLET (FP) PO SCH (21:06)
[2018-04-01] MEDS: MELATONIN 5 MG TABLETS PO PRN (21:06)
[2018-04-02] MEDS ORDERED: glipiZIDE 5 MG TABLET (FP) ONE (07:08)
[2018-04-02] MEDS: glipiZIDE 10 MG TABLET (FP) PO SCH (07:13)
[2018-04-02] MEDS: DIVALPROEX SODIUM 500 MG TABLET E.C. PO SCH ×2 (10:01→21:27)
[2018-04-02] MEDS: PRENATAL VITAMINS W/ FOLIC ACID TABLET (FP) PO SCH (10:01)
[2018-04-02] MEDS: amLODIPine BESYLATE 10 MG TABLET (FP) PO SCH (10:01)
[2018-04-02] MEDS: CITALOPRAM HYDROBROMIDE 20 MG TABLET (FP) PO SCH (10:01)
[2018-04-02] MEDS: MELATONIN 5 MG TABLETS PO PRN (21:27)
[2018-04-02] MEDS: THIAMINE HCL 100 MG TABLET (FP) PO SCH (21:27)
[2018-04-03] MEDS: glipiZIDE 10 MG TABLET (FP) PO SCH (06:24)
[2018-04-03] MEDS: DIVALPROEX SODIUM 500 MG TABLET E.C. PO SCH ×2 (09:57→21:18)
[2018-04-03] MEDS: PRENATAL VITAMINS W/ FOLIC ACID TABLET (FP) PO SCH (09:57)
[2018-04-03] MEDS: amLODIPine BESYLATE 10 MG TABLET (FP) PO SCH (09:57)
[2018-04-03] MEDS: CITALOPRAM HYDROBROMIDE 20 MG TABLET (FP) PO SCH (09:57)
--- NOTE | 2018-04-03 18:22 | PN ---
[facility] Progress Note Note: Psychiatric nurse practitioner note: Pt. requesting to speak to commercial lines underwriter concerning his psychotropic medications. Pt. asking questions concerning his glipizide medication. Pt. encouraged to follow up with the medical nurse practitioner. Pt. also educated on the importance of selecting healthy meals due to his medical history of type II diabetes. Pt. educated on the possibility of weight gain when accepting psychotropic medications and therefore its important to exercise and eat healthy. Pt. satisfied and receptive to feedback.
[2018-04-03] MEDS: THIAMINE HCL 100 MG TABLET (FP) PO SCH (21:19)
[2018-04-03] MEDS: SUVOREXANT 10 MG TABLET PO PRN (21:20)
[2018-04-04] MEDS: glipiZIDE 10 MG TABLET (FP) PO SCH (06:17)
[2018-04-04] MEDS: CITALOPRAM HYDROBROMIDE 20 MG TABLET (FP) PO SCH (10:08)
[2018-04-04] MEDS: DIVALPROEX SODIUM 500 MG TABLET E.C. PO SCH ×2 (10:08→21:15)
[2018-04-04] MEDS: amLODIPine BESYLATE 10 MG TABLET (FP) PO SCH (10:08)
[2018-04-04] MEDS: PRENATAL VITAMINS W/ FOLIC ACID TABLET (FP) PO SCH (10:08)
--- NOTE | 2018-04-04 18:06 | PN ---
S Progress Note Note: bgm is 225,will increase to 10 mgs po bid,bgm monitoring
[2018-04-04] MEDS ORDERED: glipiZIDE 10 MG TABLET (FP) PO ONE (18:15)
[2018-04-04] MEDS: THIAMINE HCL 100 MG TABLET (FP) PO SCH (21:15)
[2018-04-04] MEDS: SUVOREXANT 10 MG TABLET PO PRN (21:15)
[2018-04-05] MEDS: glipiZIDE 10 MG TABLET (FP) PO SCH ×2 (06:27→17:12)
[2018-04-05] MEDS ORDERED: glipiZIDE 10 MG TABLET (FP) PO SCH (07:00)
[2018-04-05] MEDS: DIVALPROEX SODIUM 500 MG TABLET E.C. PO SCH ×2 (09:59→21:14)
[2018-04-05] MEDS: PRENATAL VITAMINS W/ FOLIC ACID TABLET (FP) PO SCH (09:59)
[2018-04-05] MEDS: CITALOPRAM HYDROBROMIDE 20 MG TABLET (FP) PO SCH (09:59)
[2018-04-05] MEDS: amLODIPine BESYLATE 10 MG TABLET (FP) PO SCH (09:59)
[2018-04-05] MEDS: SUVOREXANT 10 MG TABLET PO PRN (21:14)
[2018-04-05] MEDS: THIAMINE HCL 100 MG TABLET (FP) PO SCH (21:14)
[2018-04-06] MEDS: glipiZIDE 10 MG TABLET (FP) PO SCH ×2 (07:43→16:45)
[2018-04-06] MEDS: CITALOPRAM HYDROBROMIDE 20 MG TABLET (FP) PO SCH (09:53)
[2018-04-06] MEDS: DIVALPROEX SODIUM 500 MG TABLET E.C. PO SCH ×2 (09:53→21:22)
[2018-04-06] MEDS: PRENATAL VITAMINS W/ FOLIC ACID TABLET (FP) PO SCH (09:53)
[2018-04-06] MEDS: amLODIPine BESYLATE 10 MG TABLET (FP) PO SCH (09:53)
[2018-04-06] MEDS: THIAMINE HCL 100 MG TABLET (FP) PO SCH (21:22)
[2018-04-07] MEDS: glipiZIDE 10 MG TABLET (FP) PO SCH ×2 (06:10→16:47)
[2018-04-07] MEDS: CITALOPRAM HYDROBROMIDE 20 MG TABLET (FP) PO SCH (10:02)
[2018-04-07] MEDS: PRENATAL VITAMINS W/ FOLIC ACID TABLET (FP) PO SCH (10:02)
[2018-04-07] MEDS: DIVALPROEX SODIUM 500 MG TABLET E.C. PO SCH ×2 (10:02→21:18)
[2018-04-07] MEDS: amLODIPine BESYLATE 10 MG TABLET (FP) PO SCH (10:02)
[2018-04-07] MEDS: THIAMINE HCL 100 MG TABLET (FP) PO SCH (21:18)
[2018-04-07] MEDS: MELATONIN 5 MG TABLETS PO PRN (21:18)
[2018-04-08] MEDS: glipiZIDE 10 MG TABLET (FP) PO SCH (06:26)
[2018-04-08 06:37] VITALS: BP 118/91; PULSE 77; TEMP 98
--- NOTE | 2018-04-08 09:03 | PN ---
Psychiatric Progress Note Vital Signs: Vital Signs Period Temp Pulse Resp BP Sys/Philip Pulse Ox Last 24 Hr 98.0 F 77 18-18 118/91 Date of Session: 04/08/18 Chief Complaint:: "Discharge" HPI: Pt. was admitted to for alcohol and cocaine dependence. ROS: Significant for hypertension, type 2 diabetes Current Medications: Active Medications Generic Name Dose Route Start Last Admin Trade Name Freq PRN Reason Stop Dose Admin Acetaminophen 650 mg 03/29/18 12:58 03/31/18 14:51 Tylenol - PO 650 mg Q4H PRN Administration FEVER Al Hydroxide/Mg Hydroxide 30 ml 03/29/18 12:58 Mylanta Oral Suspension - PO Q6H PRN DYSPEPSIA Amlodipine Besylate 10 mg 03/30/18 10:00 04/07/18 10:02 Norvasc - PO 10 mg DAILY CHANCE Administration Citalopram Hydrobromide 20 mg 03/31/18 10:00 04/07/18 10:02 Celexa - PO 20 mg DAILY CHANCE Administration Divalproex Sodium 500 mg 03/30/18 10:00 04/07/18 10:02 Depakote - PO 500 mg DAILY CHANCE Administration Divalproex Sodium 1,000 mg 03/30/18 22:00 04/07/18 21:18 Depakote - PO 1,000 mg HS CHANCE Administration Eucalyptus/Menthol/Phenol/Sorbitol 1 each 03/29/18 12:58 Cepastat Lozenge - MM Q4H PRN SORE THROAT Glipizide 10 mg 04/05/18 07:00 04/08/18 06:26 Glucotrol - PO 10 mg BID@0700,1630 CHANCE Administration Guaifenesin 10 ml 03/29/18 12:58 Robitussin Dm - PO Q6H PRN COUGH Hydroxyzine Pamoate 50 mg 03/29/18 20:09 03/29/18 21:16 Vistaril - PO 50 mg Q4H PRN Administration FOR ITCHING Ibuprofen 400 mg 03/29/18 12:58 Motrin - PO Q6H PRN Pain Level 4-6 Loperamide HCl 4 mg 03/29/18 12:58 Imodium - PO Q6H PRN DIARRHEA Magnesium Citrate 300 ml 03/29/18 12:58 Citroma - PO Q48H PRN CONSTIPATION Magnesium Hydroxide 30 ml 03/29/18 12:58 Milk Of Magnesia - PO DAILY PRN CONSTIPATION Melatonin 5 mg 03/29/18 22:00 04/07/18 21:18 Melatonin PO 5 mg HS PRN Administration INSOMNIA Multivit/Folic Acid/Iron 1 tab 03/30/18 10:00 04/07/18 10:02 Vitamins (Sjr) - PO 1 tab DAILY CHANCE Administration Pseudoephedrine/Triprolidine 1 combo 03/29/18 12:58 Actifed - PO TID PRN NASAL CONGESTION Thiamine HCl 100 mg 03/29/18 22:00 04/07/18 21:18 Vitamin B1 - PO 100 mg HS CHANCE Administration Medication(s) Change(s): No. Current Side Effect: No Lab tests ordered: No Lab tests reviewed: Yes Provider note:: Patient has completed the rehabilitation program on [facility] on . He has met his treatment goals and will continue to address his issues at the [facility] outpatient clinic. Patient is able to identify behaviors which contribute to relapse and has developed skills he can utilize to maintain recovery. Patient reports finding depakote 500mg + 1000mg HS + celexa 20mg effective. An electronic prescription for 30 days was sent to patient's pharmacy at [facility] at [address] [place] [address]. Pt. is stable for discharge. Total face to face time:: 35 Mental Status Exam - Mental Status Exam Alert and Oriented to: Time, Place, Person Cognitive Function: Good Patient Appearance: Well Groomed Mood: Happy Affect: Mood Congruent Patient Behavior: Appropriate, Cooperative Speech Pattern: Clear, Appropriate Voice Loudness: Normal Thought Process: Intact, Goal Oriented Thought Disorder: Not Present Hallucinations: Denies Suicidal Ideation: Denies Homicidal Ideation: Denies Insight/Judgement: Good Sleep: Well Appetite: Good Muscle strength/Tone: Normal Gait/Station: Normal Psychiatric Treatment Plan - Problem List (1) Alcohol dependence Current Visit: Yes (2) Cocaine dependence Current Visit: Yes (3) Bipolar disorder Current Visit: Yes (4) Cannabis dependence Current Visit: No (5) Schizoaffective disorder Current Visit: Yes
[2018-04-08] MEDS: DIVALPROEX SODIUM 500 MG TABLET E.C. PO SCH (10:06)
[2018-04-08] MEDS: PRENATAL VITAMINS W/ FOLIC ACID TABLET (FP) PO SCH (10:06)
[2018-04-08] MEDS: amLODIPine BESYLATE 10 MG TABLET (FP) PO SCH (10:06)
[2018-04-08] MEDS: CITALOPRAM HYDROBROMIDE 20 MG TABLET (FP) PO SCH (10:06)
== END 2018-04-08 10:50 | disposition home or self-care (01) | DRG 772 ==
LOC: YASAS 13:09 → Y5N 13:11
PROVIDERS: ADMIT Psychiatry & Neurology Psychiatry; ATTEND Psychiatry & Neurology Psychiatry
PROC: HZ42ZZZ Group Counseling for Substance Abuse Treatment, Cognitive-Behavioral (ICD-10-PCS; principal; 2018-03-29)
DX: F10.20 Alcohol dependence, uncomplicated (principal); F14.20 Cocaine dependence, uncomplicated; F12.20 Cannabis dependence, uncomplicated; F31.9 Bipolar disorder, unspecified; F25.9 Schizoaffective disorder, unspecified; E11.9 Type 2 diabetes mellitus without complications; I10 Essential (primary) hypertension; Z79.84 Long term (current) use of oral hypoglycemic drugs
CPT/HCPCS: 82962